=== PATIENT | male | born 1940 | race Caucasian/White ===

== ENCOUNTER 2017-09-22 13:29 | Emergency (ER) | payer MEDICARE, OTHER, SELFPAY ==
[2017-09-22 13:37] VITALS: BP 140/86; PULSE 77; RESP 18; TEMP 36.2; O2SAT 97
[2017-09-22 14:16] VITALS: BP 148/92; PULSE 69; RESP 17; O2SAT 100
--- NOTE | 2017-09-22 14:41 | DI.CT.S_ITS ---
PROCEDURE: CT HEAD/BRAIN WO CON INDICATIONS: Fall forward, ground level with LOC TECHNIQUE: Noncontrast 4.5 mm thick angled axial sections acquired from the foramen magnum to the vertex, with coronal and sagittal reformats. For radiation dose reduction, the following was used: automated exposure control, adjustment of mA and/or kV according to patient size. COMPARISON: None. FINDINGS: Image quality: Excellent. CSF spaces: Basal cisterns are patent. No extra-axial fluid collections. The ventricles are symmetric in size and shape. Brain: No intracranial bleeds or masses. There is moderate cerebral volume loss for age, with resultant ventricular and sulcal prominence. There are p moderate eriventricular and deep white matter chronic small vessel ischemic changes. There is intracranial internal carotid artery atherosclerosis. Skull and face: Calvarium and visualized facial bones appear intact, without suspicious lesions. Mild frontal scalp contusion. Sinuses: Visualized sinuses and mastoids are clear. IMPRESSION: 1. No acute intracranial abnormalities. 2. Cerebral volume loss and chronic microvascular ischemic changes. Dictated by: Erica Roberts M.D. on 09/22/2017 at 15:19 Approved by: Erica Roberts M.D. on 09/22/2017 at 15:22
--- NOTE | 2017-09-22 14:44 | ED_ITS ---
HPI - Head Injury General Chief complaint: Head Injury Stated complaint: FALL, HIT HEAD Time Seen by Provider: 09/22/17 14:26 Source: patient Mode of arrival: ambulatory Limitations: no limitations History of Present Illness HPI Narrative: Patient is a 76-year-old male who presents with ground level fall forward. He says he tripped over his own feet often. Over the past 1 month he has been falling more frequently, no sure why. Today he was walking and just happened to stumble. Neighbors found him said he lost consciousness briefly for 3-5 minutes. He has a large laceration over his left eye he denies any blurry vision. He denies any other injuries. [place] park they are traveling around the planned on going home to [place] in 2 days. Complaint: head injury Related Data Home Medications Medication Instructions Recorded Confirmed Vitamins 1 dose PO DIRECTED 09/22/17 09/22/17 Allergies Allergy/AdvReac Type Severity Reaction Status Date / Time No Known Drug Allergies Allergy Verified 09/22/17 14:19 Review of Systems Review of Systems All systems reviewed & are unremarkable except as noted in HPI and below Constitutional Denies chills, Denies fever(s), Denies lethargy and Denies weakness Eyes Reports as per HPI Cardiovascular Denies chest pain, Denies irregular heart rhythm, Denies lightheadedness, Denies palpitations, Denies dyspnea, Denies dyspnea on exertion and Denies orthopnea Respiratory Denies cough, Denies dyspnea, Denies dyspnea on exertion and Denies wheezing Gastrointestinal Gastrointestinal: Denies abdominal pain, Denies change in bowel habits, Denies diarrhea, Denies nausea and Denies vomiting Musculoskeletal Denies back pain, Denies muscle weakness, Denies numbness and Denies tingling Neurologic Denies numbness, Denies tingling and Denies weakness Endocrine Denies palpitations Allergic/Immunologic Denies wheezing FORMERLY [facility], 1928–1983 Social History Smoking Status: Former smoker Exam Initial Vital Signs Initial Vital Signs: Vital Signs Temperature 97.1 F L 09/22/17 13:37 Pulse Rate 77 09/22/17 13:37 Respiratory Rate 18 09/22/17 13:37 Blood Pressure 140/86 H 09/22/17 13:37 Pulse Oximetry 97 09/22/17 13:37 Const General: cooperative and healthy appearing Eyes Alignment and Position: alignment normal Periorbital: periorbital findings abnormal left other (laceration) Eyelids: eyelids normal Pupils: PERRL EOM: EOM intact bilaterally Neck Neck: normal visual inspection, full ROM and No no meningeal signs Chest Chest: normal inspection of the chest Resp Effort & Inspection: normal respiratory effort and able to speak in complete sentences Auscultation: clear to auscultation bilaterally Cardio Rate: regular rate Rhythm: regular rhythm Heart Sounds: S1 normal and S2 normal GI Inspection: normal to inspection and no abdominal wall ecchymosis Palpation: soft, No firm, No guarding and No tender Skin General: no rashes or lesions noted, No jaundice and No petechiae Neuro General: alert, awake and oriented x3 Cognition: normal cognition Speech: speech normal Motor: muscle tone normal throughout and strength 5/5 throughout Sensory Exam: no sensory deficits noted Extrem General: normal to inspection Right upper extremity: normal to inspection Left upper extremity: normal to inspection Right lower extremity: knee Details: abrasion Left lower extremity: normal to inspection Procedures Laceration Repair Laceration 1: Site: scalp and face (eyebrow) Side (If applicable): left Size (cm): 5 Description: linear Depth: simple, single layer Local Anesthetic: lidocaine 1% and with epi Amount of anesthesia used (mL): 5 Pre-repair: wound explored, irrigated extensively and deep structures intact Skin layer closed with: nylon Size (cm): 4-0 Number of sutures: 7 Technique: simple, interrupted Subcutaneous layer closed with: vicryl Size: 4-0 Number of sutures: 2 Technique: simple, interrupted Laceration 2: Site: face (nose) Size (cm): 1 Description: linear Skin layer closed with: other (Dermabond) Course Orders Ordered: ED Orders 09/22/17 14:00 Complete Blood Count AUTO DIFF Stat Partial Thromboplastin Time Stat Prothrombin Time INR Stat 09/22/17 14:41 CT head/brain wo con Stat 09/22/17 14:42 CT cervical spine wo con Stat Discontinued Medications Diphtheria/Tetanus/Acell Pertussis (Adacel) 0.5 ml IM .ONCE ONE Stop: 09/22/17 14:42 Last Admin: 09/22/17 15:06 Dose: 0.5 ml Vital Signs - 8 hr 09/22/17 13:37 09/22/17 14:16 09/22/17 15:19 Temperature 97.1 F L Pulse Rate 77 69 66 Respiratory Rate 18 17 15 Blood Pressure 140/86 H Blood Pressure [Left Arm] 148/92 H 152/91 H Pulse Oximetry 97 100 98 09/22/17 16:10 09/22/17 16:43 Temperature Pulse Rate 67 65 Respiratory Rate 18 19 Blood Pressure Blood Pressure [Left Arm] 147/102 H 188/97 H Pulse Oximetry 100 99 MDM - Head Injury Lab Data Result diagrams: 09/22/17 14:00 Lab Results 09/22/17 09/22/17 Range/Units 14:00 14:00 WBC 8.2 (4.5-11.0) X10^3/uL RBC 4.81 (4.5-5.9) X10^6/uL Hgb 16.2 (13.5-17.5) g/dL Hct 46.6 (41-53) % MCV 96.8 (80-100) fL MCH 33.7 (26-34) PG MCHC 34.8 (30-36) % RDW 13.0 (11.6-14.8) % Plt Count 160 (150-400) X10^3/uL Neut % (Auto) 75.2 H (50-75) % Lymph % (Auto) 15.7 L (25-40) % Brooke % (Auto) 7.6 (3-14) % Eos % (Auto) 0.9 L (2-4) % Baso % (Auto) 0.6 (0-2) % Neut # (Auto) 6200 H (1202-8236) /uL PT 11.7 (10.1-12.7) SECONDS INR 1.1 (0.9-1.3) APTT 33 (26.4-36.2) SECONDS Imaging Data CT scan - head: My impression: PROCEDURE: CT HEAD/BRAIN WO CON INDICATIONS: Fall forward, ground level with LOC TECHNIQUE: Noncontrast 4.5 mm thick angled axial sections acquired from the foramen magnum to the vertex, with coronal and sagittal reformats. For radiation dose reduction, the following was used: automated exposure control, adjustment of mA and/or kV according to patient size. COMPARISON: None. FINDINGS: Image quality: Excellent. CSF spaces: Basal cisterns are patent. No extra-axial fluid collections. The ventricles are symmetric in size and shape. Brain: No intracranial bleeds or masses. There is moderate cerebral volume loss for age, with resultant ventricular and sulcal prominence. There are p moderate eriventricular and deep white matter chronic small vessel ischemic changes. There is intracranial internal carotid artery atherosclerosis. Skull and face: Calvarium and visualized facial bones appear intact, without suspicious lesions. Mild frontal scalp contusion. Sinuses: Visualized sinuses and mastoids are clear. IMPRESSION: 1. No acute intracranial abnormalities. 2. Cerebral volume loss and chronic microvascular ischemic changes. Dictated by: Erica Robetrs M.D. on 09/22/2017 at 15:19 ct c spine: Radiologist's impression: PROCEDURE: CT CERVICAL SPINE WO CON INDICATIONS: Fall forward TECHNIQUE: Noncontrast 3 mm thick sections acquired from the skull base to the T4 level. Sagittal and coronal reformats were then constructed. For radiation dose reduction, the following was used: automated exposure control, adjustment of mA and/or kV according to patient size. COMPARISON: None. FINDINGS: Image quality: Excellent. Bones: No fractures or dislocations. There is grade 1 anterolisthesis of C5- C6. Degenerative disc disease is present, severe at C5-C6, moderate at C6-C7 and C7- T1. There is bilateral facet arthropathy, severe at C3-C4 on the right, C4-C5 and C5-C6 on the left. Visualized superior ribs are intact. Soft tissues: Prevertebral soft tissues are normal in thickness. No paravertebral hematomas. No apical pneumothoraces. IMPRESSION: 1. No fractures. 2. Degenerative disc and facet disease as described. Dictated by: Erica Roberts M.D. on 09/22/2017 at 15:09 [facility] Narrative Medical decision making narrative: Patient has multiple abrasions on face and a laceration. He however is ambulatory no other complaints. Blood work is within normal limits. Recommend following up in [place] when he returns home. I discussed all findings with the patient. Education has been performed regarding treatment plan, diagnosis, warning signs and symptoms and all concerns have been addressed. Verbally agree with and understood all of the above. Discharge Plan Departure Patient Disposition: Home, Self-Care Clinical Impression: Face lacerations, Closed head injury Discharge Date/Time: 09/22/17 17:07 Interventions: ED Discharge Assessment Last Done: 09/22/17 17:05 Instructions: DI for Laceration Repair With Dermabond, DI for Laceration Repair -- Complex Suture Activity Restrictions/Additional Instructions: 1. Have your suture removed in 5-7 days, you may go to walk-in clinic, return to the ER or call your primary care physician. -blue over nose will come off on its own time 2. No soaking in water including dishes, bathtubs, Lakes, swimming pools etc 3. Signs of infection include, but not limited to, increased redness, increased swelling, increased pain, fever and purulent drainage, if the symptoms should arise, you may need an antibiotic and you should have a reevaluation either by your primary care provider or by the emergency department. Prescriptions: No Action Vitamins 1 dose PO DIRECTED RF: 0
[2017-09-22 14:53] LABS: Add Manual Diff / Slide Review NO; Basophils Percent Auto 0.6 % (0-2); Eosinophils Percent Auto 0.9 % (2-4); Hematocrit 46.6 % (41-53); Hemoglobin 16.2 g/dL (13.5-17.5); INR 1.1 (0.9-1.3); Lymphocytes Percent Auto 15.7 % (25-40); Mean Corpuscular HGB Conc 34.8 % (30-36); Mean Corpuscular Hemoglobin 33.7 PG (26-34); Mean Corpuscular Volume 96.8 fL (80-100); Monocytes Percent Auto 7.6 % (3-14); Neutrophils Absolute Auto 6200 /uL (3000-5900); Neutrophils Percent Auto 75.2 % (50-75); Platelet Count 160 X10^3/uL (150-400); Prothrombin Time 11.7 SECONDS (10.1-12.7); Red Blood Cell Count 4.81 X10^6/uL (4.5-5.9); White Blood Cell Count 8.2 X10^3/uL (4.5-11.0)
[2017-09-22 14:56] LABS: PTT Partial Thromboplastin Tim 33 SECONDS (26.4-36.2)
[2017-09-22] MEDS: TET,DIPH,PERTUSS(ACELL),VAC/PF 0.5 ML SYRINGE IM (15:06)
[2017-09-22 15:19] VITALS: BP 152/91; PULSE 66; RESP 15; O2SAT 98
[2017-09-22 16:10] VITALS: BP 147/102; PULSE 67; RESP 18; O2SAT 100
[2017-09-22 16:43] VITALS: BP 188/97; PULSE 65; RESP 19; O2SAT 99
== END 2017-09-22 17:07 | disposition home or self-care (01) ==
PROVIDERS: Emergency Provider Emergency Medicine
DX: S01.81XA Laceration without foreign body of other part of head, initial encounter (principal); S09.90XA Unspecified injury of head, initial encounter; W19.XXXA Unspecified fall, initial encounter
CPT/HCPCS: 12013; 36591; 70450; 72125; 85025; 85610; 85730; 90471; 99283; 90715